=== PATIENT | female | born 1995 | race Caucasian/White ===

== ENCOUNTER 2017-01-22 09:00 | Inpatient (IN) | payer MEDICAID ==
[~2017-01-22] VITALS: Ht 144.8 cm; Wt 62.8 kg
[~2017-01-22 09:00] MED LIST: ACET500C5 PO; PREN1TAB62 PO; PRENAT PO
[2017-01-22] MEDS ORDERED: MINERAL OIL LIGHT 10 ML VIAL TOP PRN (10:30)
[2017-01-22] MEDS ORDERED: CARBOPROST 250 MCG INJ IM PRN (10:30)
[2017-01-22] MEDS ORDERED: IBUPROFEN 600 MG TAB PO PRN (10:30)
[2017-01-22] MEDS ORDERED: OXYTOCIN 30 UNITS/LR 500 ML IV SCH ×2 (10:30)
[2017-01-22] MEDS ORDERED: METHYLERGONOVINE 0.2 MG INJ IM PRN (10:30)
[2017-01-22] MEDS ORDERED: OXYTOCIN 30 UNITS/LR 500 ML IV PRN (10:30)
[2017-01-22] MEDS ORDERED: LIDOCAINE 1% (MPF) 30 ML INJ INJ PRN (10:30)
[2017-01-22] MEDS ORDERED: MISOPROSTOL 200 MCG TAB PR PRN (10:30)
[2017-01-22] MEDS ORDERED: ACETAMINOPHEN/CODEINE #3 TAB PO PRN (10:30)
[2017-01-22] MEDS ORDERED: BUTORPHANOL 2 MG INJ IV PRN (10:30)
[2017-01-22 10:38] VITALS: BP 123/66; PULSE 76; RESP 20
[2017-01-22] MEDS: LACTATED RINGER'S 1,000 ML IV SCH ×2 (11:21→18:10)
[2017-01-22 11:24] LABS: ADD SCAN DIFF NO
[2017-01-22 11:28] LABS: BASOPHILS % 0.1 % (0.0-2.0); EOSINOPHILS % 0.3 % (0.0-7.0); HEMATOCRIT 39.6 % (37.0-47.0); HEMOGLOBIN 13.5 g/dl (12.0-16.0); LYMPHOCYTES # 1.3 10^3/ul (0.8-2.9); LYMPHOCYTES % 16.9 % (15.0-51.0); MEAN CORPUSCULAR HEMOGLOBIN 31.5 pg (29.0-33.0); MEAN CORPUSCULAR HGB CONC 34.1 g/dl (32.0-37.0); MEAN CORPUSCULAR VOLUME 92.3 fl (82.0-101.0); MEAN PLATELET VOLUME 11.9 fl (7.4-10.4); MONOCYTE # 0.5 10^3/ul (0.3-0.9); MONOCYTES % 6.1 % (0.0-11.0); NEUTROPHIL # 5.7 10^3/ul (1.6-7.5); NEUTROPHILS % 75.9 % (39.0-77.0); PLATELET COUNT 183 10^3/UL (140-415); RED BLOOD COUNT 4.29 10^6/ul (4.20-5.40); WHITE BLOOD COUNT 7.6 10^3/ul (4.8-10.8)
[2017-01-22] MEDS ORDERED: DINOPROSTONE 10 MG VAG SUPP VAG ONE (11:30)
[2017-01-22 11:54] LABS: INR 0.85; PROTIME 11.6 Sec (12.2-14.2); PT RATIO 0.9
[2017-01-22 11:55] LABS: PARTIAL THROMBOPLASTIN TIME 27.8 Sec (25.0-35.0)
[2017-01-22] MEDS ORDERED: LACTATED RINGER'S 1,000 ML IV PRN (12:00)
--- NOTE | 2017-01-22 20:21 | HP ---
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 Blood Type: O+ Rubella: immune RPR/VDRL: Negative GBS Status: Negative HBsAG: Negative OB Admission Exam Vital Signs Vital Signs Vital Signs Date Time Temp Pulse Resp B/P Pulse Ox O2 Delivery O2 Flow Rate FiO2 01/22/17 10:38 97.6 76 20 123/66 Room Air Physical Exam HEENT: WNL Heart: Rhythm Normal Lungs: Clear, Equal Abdomen: WNL Extremities: Normal Reflexes: Normal Cervical Dilatation: None Effacement: 0% Station: Ballotable Membranes: Intact Heart Rate: 140's Accelerations: Accelerations Present Decelerations: No Decelerations Varibility: Marked Contractions on Admission: None Last 72 hours Lab Results CBC & BMP 01/22/17 11:00 OB Assessment/Plan Reason for admission: induction of labor Other Assessment: IUGR 37 weeks gestation for induction of the labor Induction Method: per Misoprostol Protocol EFREN SHAW MD Jan 22, 2017 20:21
[2017-01-23] MEDS ORDERED: DIPHENHYDRAMINE 50 MG INJ IV ONE (01:00)
[2017-01-23] MEDS: LACTATED RINGER'S 1,000 ML IV SCH ×3 (02:14→10:16)
[2017-01-23] MEDS ORDERED: FENTAnyl 2MCG/ML-ROPIV 0.2% 100 ML ONE (05:05)
[2017-01-23] MEDS ORDERED: FENTAnyl 2MCG/ML-ROPIV 0.2% 100 ML BAG EPI SCH (05:30)
[2017-01-23] MEDS ORDERED: NALOXONE (0.4 MG/ML) INJ IV PRN (05:30)
[2017-01-23] MEDS ORDERED: ACETAMINOPHEN 500 MG TAB PO PRN (13:00)
[2017-01-23] MEDS ORDERED: OXYTOCIN 30 UNITS/LR 500 ML IV PRN ×2 (13:00→19:00)
[2017-01-23] MEDS ORDERED: METHYLERGONOVINE 0.2 MG INJ IM PRN ×2 (13:00→19:00)
[2017-01-23] MEDS ORDERED: MULTIVIT/MIN/FOLATE/IRON/PREN TAB PO SCH (13:00)
[2017-01-23] MEDS ORDERED: MISOPROSTOL 200 MCG TAB PR PRN ×2 (13:00→19:00)
[2017-01-23] MEDS ORDERED: LACTATED RINGER'S 1,000 ML IV* SCH (13:00)
[2017-01-23] MEDS ORDERED: CARBOPROST 250 MCG INJ IM PRN ×2 (13:00→19:00)
--- NOTE | 2017-01-23 13:00 | LDN ---
Date/Time of Note Date/Time of Note DATE: 01/23/17 TIME: 12:55 Delivery Summary I was called to attend the delivery for this patient due to immediate nonavailability of attending managing the patient during her intrapartum course patient. Was feeling pressure and urge to push. Attended to the bedside. Exam showed complete/complete/+3 . heart tracing category 1, some variables good variability, Placenta Delivered: Spontaneously Meconium: none Episiotomy: No Perineal laceration: 2 Laceration repair: Second-degree perineal laceration. Repaired using 2-0 Vicryl Anesthesia type: Epidural Sponge & Needle done & correct: Yes All needle counts correct: Yes Any foreign bodies felt in the: No Problems: Infant Delivery Information Sex Sex: female Apgars 1 Minute: 8 5 Minute: 9 Suctioning Nose & mouth suctioned at cortney: Yes Delee suction performed: Yes Umbilical Cord Umbilical cord with: 3 Vessels Cord presentations: nuchal cord Cord Blood was obtained: Yes Mother & Baby Disposition Disposition Tight nuchal cord noted at the time of delivery Baby's mouth and nose was suctioned and the perineum and immediately after delivery. Baby was handed to the waiting RT and nursing team after clamping and cutting of the cord. Placenta evaluated. Bloody amniotic fluid behind the baby after delivery noted that was concerning for possible recent minor abruption Baby looked SGA, IUGR for GA There was minimal strength of blood clot at the age of the placenta noted EBL: 400 cc Fundus was firm after delivery of placenta CASSANDRA RODRIGUEZ MD Jan 23, 2017 13:00
[2017-01-23] MEDS ORDERED: IBUPROFEN 600 MG TAB PO PRN (13:30)
[2017-01-23] MEDS ORDERED: ACETAMINOPHEN/CODEINE #3 TAB PO ONE (17:17)
[2017-01-23] MEDS: LACTATED RINGER'S 1,000 ML IV* SCH (18:31)
[2017-01-23 18:40] VITALS: BP 109/71; PULSE 74; RESP 18
[2017-01-23] MEDS ORDERED: BENZOCAINE 20% 56 ML SPRAY TOP PRN (19:00)
[2017-01-23] MEDS ORDERED: ACETAMINOPHEN/CODEINE #3 TAB PO PRN ×2 (19:00)
[2017-01-23] MEDS ORDERED: LANOLIN 7 GM TUBE TOP PRN (19:00)
[2017-01-23] MEDS: CEPHALEXIN 500 MG CAP PO SCH ×2 (19:00→23:26)
[2017-01-23] MEDS ORDERED: WITCH HAZEL/GLYCERIN PAD PR PRN (19:00)
[2017-01-23] MEDS ORDERED: ZOLPIDEM 5 MG TAB PO PRN (19:00)
[2017-01-23] MEDS ORDERED: DIBUCAINE 1% 30 GM OINT PR PRN (19:00)
[2017-01-23] MEDS: IBUPROFEN 600 MG TAB PO SCH ×2 (19:00→23:27)
[2017-01-23 19:40] VITALS: BP 127/84; PULSE 69; RESP 18
[2017-01-23] MEDS: MAGNESIUM HYDROXIDE 30ML CUP PO SCH (21:03)
[2017-01-23] MEDS: SENNA/DOCUSATE NA (8.6MG/50MG) TAB PO SCH (21:03)
[2017-01-24] VITALS: BP 122/74; PULSE 71; RESP 19
[2017-01-24] MEDS: LACTATED RINGER'S 1,000 ML IV* SCH ×2 (02:31→20:28)
[2017-01-24 04:14] VITALS: BP 97/47; PULSE 60; RESP 18
[2017-01-24] MEDS: CEPHALEXIN 500 MG CAP PO SCH ×4 (05:41→23:50)
[2017-01-24] MEDS: IBUPROFEN 600 MG TAB PO SCH ×4 (05:42→23:50)
[2017-01-24 07:57] LABS: ADD SCAN DIFF NO
[2017-01-24 08:17] LABS: BASOPHILS % 0.1 % (0.0-2.0); EOSINOPHILS # 0.1 10^3/ul (0.0-0.5); EOSINOPHILS % 0.7 % (0.0-7.0); HEMATOCRIT 34.9 % (37.0-47.0); HEMOGLOBIN 11.9 g/dl (12.0-16.0); LYMPHOCYTES # 2.3 10^3/ul (0.8-2.9); LYMPHOCYTES % 25.7 % (15.0-51.0); MEAN CORPUSCULAR HGB CONC 34.1 g/dl (32.0-37.0); MEAN CORPUSCULAR VOLUME 93.8 fl (82.0-101.0); MEAN PLATELET VOLUME 11.5 fl (7.4-10.4); MONOCYTE # 0.5 10^3/ul (0.3-0.9); MONOCYTES % 5.5 % (0.0-11.0); NEUTROPHIL # 6.1 10^3/ul (1.6-7.5); NEUTROPHILS % 67.6 % (39.0-77.0); PLATELET COUNT 146 10^3/UL (140-415); RED BLOOD COUNT 3.72 10^6/ul (4.20-5.40); RED CELL DISTRIBUTION WIDTH 13.2 % (11.5-14.5)
[2017-01-24] MEDS: SENNA/DOCUSATE NA (8.6MG/50MG) TAB PO SCH ×2 (09:00→21:00)
[2017-01-24] MEDS: MAGNESIUM HYDROXIDE 30ML CUP PO SCH ×2 (09:00→21:00)
--- NOTE | 2017-01-24 09:21 | DS ---
Date/Time of Note Date/Time of Note home next day DATE: 01/24/17 TIME: 09:20 Obstetrical Discharge Record Final Diagnosis Final Diagnosis: Term delivered Other Final Diagnosis S/P vaginal delivery Vaginal Delivery Obstetrical Delivery: Spontaneous, Laceration, Repaired Complications Other (IUGR) Augmentation: Yes Induction: Yes Condition on Discharge Physical Assessment Last Vitals: see nurses notes Voiding: Yes Bowel Movement: Yes Breast: Soft, non-tender, Filling Fundus: Firm Abdomen and Incision: soft bs + Episiotomy: NA Calf Tenderness: No Patient Condition: Good EFREN SHAW MD Jan 24, 2017 09:21
--- NOTE | 2017-01-24 09:22 | PD.PPDC ---
SPORTS ADMINISTRATOR Discharge Instruction Provider Information Physician Information 22 y/o female had vaginal delivery Diagnosis Final Diagnosis: S/P vaginal delivery Condition Patient Condition: Good Diet Diet: Resume Regular Diet Activity/Restrictions Activity: Normal Activity May Shower Restrictions: Nothing in the Vagina Return to Work or School: Mar 11, 2017 Follow-up Follow-up with Physician: 4, Week/Weeks Return to clinic for OB Instructions: Breast Tenderness Depression EFREN SHAW MD Jan 24, 2017 09:22
[2017-01-24] MEDS ORDERED: IBUP-1542 PO (09:23)
[2017-01-24 12:00] VITALS: BP 118/54; PULSE 74
[2017-01-24 16:30] VITALS: BP 115/62; PULSE 84; RESP 18
[2017-01-24 19:55] VITALS: BP 104/65; PULSE 66; RESP 18
[2017-01-25 03:40] VITALS: BP 104/50; PULSE 66; RESP 19
[2017-01-25] MEDS: CEPHALEXIN 500 MG CAP PO SCH ×3 (05:44→17:01)
[2017-01-25] MEDS: IBUPROFEN 600 MG TAB PO SCH ×3 (05:44→17:02)
[2017-01-25] MEDS: LACTATED RINGER'S 1,000 ML IV* SCH ×2 (05:44→10:31)
[2017-01-25 08:30] VITALS: BP 115/56; PULSE 70; RESP 18
[2017-01-25] MEDS ORDERED: MEASLES,MUMPS,RUBELLA VACCINE INJ SC* ONE (09:00)
[2017-01-25] MEDS ORDERED: VARICELLA VACCINE LIVE/PF 1,350 UNIT/0.5 ML ML SC* ONE (09:00)
[2017-01-25] MEDS ORDERED: DIPHTH/TET/ACEL PERTUSS (ADULT) 0.5 ML VIAL IM* ONE (09:00)
[2017-01-25] MEDS: SENNA/DOCUSATE NA (8.6MG/50MG) TAB PO SCH (09:00)
[2017-01-25] MEDS: MAGNESIUM HYDROXIDE 30ML CUP PO SCH (09:00)
[2017-01-25 16:00] VITALS: BP 110/48; PULSE 73; RESP 16
== END 2017-01-25 17:35 | disposition home or self-care (01) | DRG 775 ==
LOC: L-D 09:00 → PP1 01-23 18:14
PROVIDERS: ADMIT Obstetrics & Gynecology; ATTEND Obstetrics & Gynecology
PROC: 10E0XZZ Delivery of Products of Conception, External Approach (ICD-10-PCS; principal; 2017-01-23)
PROC: 0KQM0ZZ Repair Perineum Muscle, Open Approach (ICD-10-PCS; 2017-01-23)
DX: O69.81X0 Labor and delivery complicated by cord around neck, without compression, not applicable or unspecified (principal); O70.1 Second degree perineal laceration during delivery; Z3A.37 37 weeks gestation of pregnancy; Z37.0 Single live birth
CPT/HCPCS: 62319; 85025; 85610; 85730; 86592; 86900; 86901; 87340; 88307; 90715; 90716; 99464; J0595; J1200; J2590; J3010; J7120